=== PATIENT | female | born 1960 | race Caucasian/White ===

== ENCOUNTER 2019-09-16 11:57 | Day surgery (SDC) | payer MEDICARE, MEDICAID ==
[2019-09-15 11:18] LABS: BASOPHILS % (AUTO) 0.4 % (0-1); EOSINOPHILS # (AUTO) 0.1 X10'3 (0-0.9); LYMPHOCYTES # (AUTO) 0.9 X10'3 (1.1-4.8); LYMPHOCYTES % (AUTO) 16.4 % (21-51); MEAN CORPUSCULAR HEMOGLOBIN 34.1 PG (27.0-31.0); MEAN CORPUSCULAR HGB CONC 32.9 g/dL (33.0-36.5); MEAN CORPUSCULAR VOLUME 103.8 FL (78-98); MEAN PLATELET VOLUME 7.9 FL (7.4-10.4); MONOCYTES # (AUTO) 0.5 X10'3 (0-0.9); MONOCYTES % (AUTO) 9.4 % (2-12); NEUTROPHILS % (AUTO) 72.8 % (42-75); PRE OP HEMOGLOBIN 12.2 g/dL (12.0-16.0); PRE OP PLATELET COUNT 249 X10'3 (140-440); RED BLOOD COUNT 3.57 X10'6 (4.20-5.60); RED CELL DISTRIBUTION WIDTH 13.4 % (11.5-14.5)
[2019-09-15 11:25] LABS: PRE OP PROTIME 10.3 SECONDS (9.0-12.0)
[2019-09-15 11:30] LABS: ALBUMIN 3.6 G/DL (3.4-5.0); ALBUMIN/GLOBULIN RATIO 1.1 (1.1-1.5); ALKALINE PHOSPHATASE 104 IU/L (46-116); BLOOD UREA NITROGEN 17 MG/DL (7-18); BUN/CREATININE RATIO 22.4 (6.6-38.0); CALCIUM 8.9 MG/DL (8.5-10.1); CHLORIDE 105 MMOL/L (99-107); CREATININE 0.76 MG/DL (0.40-0.90); PRE OP ALT 17 U/L (30-65); PRE OP ANION GAP 13 (8-16); PRE OP AST 22 U/L (10-37); PRE OP BILIRUB, TOTAL 0.6 MG/DL (0.0-1.0); PRE OP GLUCOSE 85 MG/DL (70-104); PRE OP POTASSIUM 3.5 MMOL/L (3.4-5.1); PRE OP SODIUM 144 MMOL/L (135-145); TOTAL CARBON DIOXIDE 26.2 MMOL/L (24-32); TOTAL PROTEIN 6.9 G/DL (6.4-8.2); eGFR 78 ML/MIN
--- NOTE | 2019-09-15 11:45 | NUR ---
Asked by pre op to arrange a SNF placement for this pre op pt. She is being admitted tomorrow for an ORIF of her ankle and would like rehab even though it is a same day surgery. Will refer to all
[2019-09-16] VITALS (10 sets, daily range): BP systolic 120–143; BP diastolic 56–82
[~2019-09-16] VITALS: Ht 162.6 cm; Wt 100.0 kg
--- NOTE | 2019-09-16 09:12 | NUR ---
Pt was referred to all local SNFs yesteday but no responses were rec'd. Placed call to Steve at [facility] (only facility I'm sure has a female bed) [facility] is waiving the 3 day qualifying stay under medicare but she needs an H/P and any progress notes. Able to locate pre op orders in [facility] along w/ labs. I contacted [facility] and found that both the MD and his medical tech are gone for the day. I attempted 3 times to speak w/ their switchboard which cut me off and kept transferring me back to Dr. Roman's office. Called [facility] and instructed them immediately not to transfer me anywhere and I explained what I needed. Audit Associate VERY rude and said they have no records there, all records would have been sent already. I emailed Steve at [facility] what info I had hoping it will be enough. Continue to monitor.
--- NOTE | 2019-09-16 09:24 | NUR ---
Placed call to pt to let her know of the problems I'm having getting her placed in a SNF. She says she was assured by MD that she could go to rehab. She says she has no one at home to help her. I told her I would let her know LAWRENCE about [facility]. Continue to monitor.
--- NOTE | 2019-09-16 11:12 | NUR ---
Advised by [facility] that they have accepted the pt for rehab. Paperwork given to Yudy from pre-op who will get MD to sign/complete. Pt notified of acceptance and she was very pleased. Steve notified that I will send paperwork as soon as it's completed. Continue to monitor.
[~2019-09-16 11:57] MED LIST: ATOR20TA PO; CHOL500049 PO; GABA300C PO; PHEN300C6 PO; cefazolin/dext.iso 2gm/50ml 50 ML IV ONE; famotidine 20mg tablet PO ONE; ringers solution, lacted 1,000 ML IV SCH
[2019-09-16] MEDS ORDERED: propofol inj 20 ML IV ONE (13:26)
[2019-09-16] MEDS ORDERED: fentaNYL/PF 50MCG/1 ML 2ML syringe ONE (13:30)
[2019-09-16] MEDS ORDERED: midazolam 2 mg/2 ml injection ONE (13:30)
[2019-09-16] MEDS ORDERED: BUPIVAcaine/PF 2.5 mg/ml (0.25%) 30ml vial ONE (13:31)
[2019-09-16] MEDS ORDERED: sevoflurane 250ml liquid IH ONE (13:38)
[2019-09-16] MEDS ORDERED: bacitracin 15gm ointment TP ONE ×2 (15:22→15:42)
[2019-09-16] MEDS ORDERED: ringers solution, lacted 1,000 ML IV SCH (15:27)
[2019-09-16] MEDS ORDERED: morphine 2 MG/ML inj. syringe IV PRN (15:30)
[2019-09-16] MEDS ORDERED: ondansetron/PF 4mg/2ml inj IV PRN (15:30)
[2019-09-16] MEDS ORDERED: proCHLORperazine 10 MG/2 ml inj IV PRN (15:30)
[2019-09-16] MEDS ORDERED: morphine 4 MG/ML inj SYRINge IV PRN (15:30)
[2019-09-16] MEDS ORDERED: meperidine/PF 25mg/ml syringe IV PRN ×3 (15:30)
[2019-09-16] MEDS ORDERED: ROPIVAcaine 0.5% (5mg/ml) 30ml vial ONE (15:54)
--- NOTE | 2019-09-16 16:01 | NUR ---
Received from OR via [facility] , accompanied by Anesthesiologist DEWAYNE and report given by Anesthesiolgist. PATIENT WITH VSS. SPLINT TO RIGHT FOOT AND ANKLE. + MOVEMENT OF TOES ON RIGHT . + CAP REFILL. 10L MASK ON WITH 100% SATURATIONS. PATIENT DENIES PAIN. Addendum: 09/16/19 at 1611 by Feroz Baird RN, RN Amended: Links added.
--- NOTE | 2019-09-16 17:31 | NUR ---
ALL CRITERIA FOR DC TO [facility] HAS BEEN ACHIEVED. REPORT CALLED TO FACILITY AND [facility] PRESENT TO TAKE PATIENT TO CARE FACILITY [facility]. PATIENT TRANSFERRED TO WHEELCHAIR VIA STAND PIVOT ON LEFT FOOT. Addendum: 09/16/19 at 1740 by Feroz Baird RN, RN Amended: Links added.
== END 2019-09-16 17:31 ==
LOC: PAS 11:57
PROVIDERS: ATTEND Podiatrist Foot & Ankle Surgery
DX: S82.841A Displaced bimalleolar fracture of right lower leg, initial encounter for closed fracture (principal); G40.A09 Absence epileptic syndrome, not intractable, without status epilepticus; G80.9 Cerebral palsy, unspecified; E66.9 Obesity, unspecified; Z68.37 Body mass index [BMI] 37.0-37.9, adult; G89.18 Other acute postprocedural pain; Z11.59 Encounter for screening for other viral diseases; Z79.899 Other long term (current) drug therapy; Z79.01 Long term (current) use of anticoagulants; Z88.5 Allergy status to narcotic agent; Z88.2 Allergy status to sulfonamides; Z88.8 Allergy status to other drugs, medicaments and biological substances; Z98.890 Other specified postprocedural states; Z87.891 Personal history of nicotine dependence; Z79.82 Long term (current) use of aspirin; Z72.89 Other problems related to lifestyle; Z82.49 Family history of ischemic heart disease and other diseases of the circulatory system; X58.XXXA Exposure to other specified factors, initial encounter; Y93.89 Activity, other specified; Y92.89 Other specified places as the place of occurrence of the external cause; Y99.8 Other external cause status
CPT/HCPCS: 27814; 36415; 64445; 64447; 73600; 76000; 80053; 82948; 85025; 85610; 85730; 87635; 93005; A6223; C1713; J2250; J2704; J3010; J3490; J7120; A4215; A4618; A6253; A6449; A7000; J2795